=== PATIENT | male | born 2000 | race African-American/Black ===

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

== ENCOUNTER 2021-07-13 12:17 | Emergency (ER) | payer OTHER ==
[2021-07-13 12:41] VITALS: TEMP 98.1; BMI 18.8
[2021-07-13] MEDS ORDERED: FAMOTIDINE 20 MG/50 ML IVPB 20 MG/50 ML MG IVPB ONE ×2 (14:15→14:22)
[2021-07-13] MEDS ORDERED: SODIUM CHLORIDE 0.9% 500 ML INFUS.BAG IV ONE (14:35)
[2021-07-13 16:01] LABS: HEMATOCRIT 38.3 % (35.4-49); HEMOGLOBIN 12.6 GM/dL (11.7-16.9); MCHC 32.9 g/dl (32.0-35.9); MEAN CELL VOLUME 91.1 fl (80-96); MEAN PLT VOLUME 9.2 fl (7.5-11.1); PLATELET COUNT 374 10^3/uL (134-434); RDW 12.4 % (11.9-15.9); WHITE BLOOD COUNT 6.7 K/mm3 (4.0-10.0)
[2021-07-13 16:15] LABS: INR 1.2 (0.83-1.09); PROTHROMBIN TIME (PATIENT) 14.8 SEC (9.7-13.0)
[2021-07-13 16:17] LABS: ACTIVATED PTT 32.4 SECONDS (25.2-36.5)
[2021-07-13 16:22] LABS: CALCIUM 9.7 mg/dL (8.5-10.1)
[2021-07-13 16:23] LABS: ALBUMIN 3.5 g/dl (3.4-5.0); BLOOD UREA NITROGEN 26.1 mg/dL (7-18)
[2021-07-13 16:26] LABS: CREATININE 0.9 mg/dL (0.55-1.3)
[2021-07-13 16:27] LABS: BILIRUBIN,TOTAL 0.5 mg/dL (0.2-1)
[2021-07-13 16:28] LABS: TOT PROT 9.1 g/dl (6.4-8.2)
[2021-07-13] MEDS ORDERED: LIDOCAINE VISCOUS 2% ORAL/TOP 15 ML UNIT-DOSE CUP MM ONE (16:44)
[2021-07-13] MEDS ORDERED: LIDOCAINE VISCOUS 2% ORAL/TOP 15 ML UNIT-DOSE CUP ONE (16:48)
[2021-07-13 17:27] VITALS: BP 112/76
[2021-07-13 17:37] LABS: ANISOCYTOSIS 0; MACROCYTOSIS 0; PLATELET ESTIMATE NORMAL
[2021-07-13 17:45] VITALS: PULSE 92
== END 2021-07-13 18:15 | disposition home or self-care (01) ==
LOC: JER 12:17
PROC: 3E033NZ Introduction of Analgesics, Hypnotics, Sedatives into Peripheral Vein, Percutaneous Approach (ICD-10-PCS; principal; 2021-07-13)
DX: B37.0 Candidal stomatitis (principal); R10.13 Epigastric pain
CPT/HCPCS: 36415; 80053; 82272; 85025; 85610; 85730; 86850; 86900; 86901; 96365; 99284-25